=== PATIENT | female | born 1965 | race Caucasian/White ===

== ENCOUNTER → 2018-10-23 | Outpatient (CLI) | payer OTHER ==
--- NOTE | 2018-10-23 18:01 | RAD ---
Examination: LUMBAR SPINE 2-3V History: Chronic back pain Comparison/Correlation: None Findings: Frontal and lateral views of the lumbar spine were obtained. Exaggerated lordosis of lumbar spine noted. Minimal retrolisthesis of L2 in relation to L3 is present. Vertebral body heights are adequate. Spurring is present. Mild facet joint degenerative changes of the low lumbar spine seen. Impression: Minimal retrolisthesis of L2 over L3. Exaggerated lordosis. Electronically signed by: Felix Isaac MD (10/23/2018 5:58 PM) [facility] [place]
== END | disposition home or self-care (01) ==
LOC: RAD 09:37
PROVIDERS: ATTEND Family Medicine
DX: M43.16 Spondylolisthesis, lumbar region (principal); M47.816 Spondylosis without myelopathy or radiculopathy, lumbar region; M40.46 Postural lordosis, lumbar region
CPT/HCPCS: 72100